=== PATIENT | female | born 1965 | race Caucasian/White ===

== ENCOUNTER 2022-12-14 17:09 | Observation (INO) | payer OTHER ==
[2022-12-14] MEDS ORDERED: FAMOTIDINE 20 MG/50 ML IVPB 20 MG/50 ML MG IVPB ONE ×2 (19:48→20:02)
[2022-12-14] MEDS ORDERED: MAG HYDROX/AL HYDROX/SIMETH 30 ML UNIT-DOSE CUP PO ONE (19:48)
[2022-12-14] MEDS ORDERED: ONDANSETRON 4 MG/2 ML VIAL IVPUSH ONE (19:48)
[2022-12-14] MEDS ORDERED: ONDANSETRON 4 MG/2 ML VIAL ONE (20:02)
[2022-12-14] MEDS ORDERED: MAG HYDROX/AL HYDROX/SIMETH 30 ML UNIT-DOSE CUP ONE (20:02)
[2022-12-14 20:07] LABS: BASO % 0.5 % (0-2.0); HEMATOCRIT 39.5 % (32.4-45.2); HEMOGLOBIN 13.1 GM/dL (10.7-15.3); LYMPH % 27.4 % (8-40); MCH 27.7 pg (25.7-33.7); MEAN CELL VOLUME 83.9 fl (80-96); MEAN PLT VOLUME 8.6 fl (7.5-11.1); MONO % 7.2 % (3.8-10.2); NEUT % 61.9 % (42.8-82.8); PLATELET COUNT 288 10^3/uL (134-434); RBC 4.71 M/mm3 (3.60-5.2); RDW 14.4 % (11.6-15.6)
[2022-12-14 20:24] LABS: POTASSIUM 4.7 mmol/L (3.5-5.1)
[2022-12-14 20:27] LABS: BLOOD UREA NITROGEN 29.8 mg/dL (7-18); CALCIUM 9.9 mg/dL (8.5-10.1)
[2022-12-14 20:29] LABS: CREATININE 1.5 mg/dL (0.55-1.3)
[2022-12-14 20:31] LABS: BILIRUBIN,TOTAL 0.6 mg/dL (0.2-1); TOT PROT 7.9 g/dl (6.4-8.2)
[2022-12-14] MEDS ORDERED: SODIUM CHLORIDE 0.9% 500 ML INFUS.BAG IV ONE (20:34)
[2022-12-15] MEDS ORDERED: MAG HYDROX/AL HYDROX/SIMETH 30 ML UNIT-DOSE CUP PO PRN (00:53)
[2022-12-15] MEDS ORDERED: ONDANSETRON 4 MG/2 ML VIAL IVPUSH PRN (02:00)
[2022-12-15 02:25] VITALS: BMI 35.1
[2022-12-15] MEDS ORDERED: TRIMETHOBENZAMIDE HCL 200MG/2ML INJ IM PRN (02:32)
[2022-12-15] MEDS ORDERED: ACETAMINOPHEN 1000 MG/100 ML BAG IVPB PRN (02:47)
[2022-12-15] MEDS: DIVALPROEX NA *ER* EXTEND REL 500 MG TABLET.SA (FP) PO SCH (03:23)
[2022-12-15] MEDS: BENZTROPINE MESYLATE 2 MG TABLET PO SCH ×2 (03:24→23:43)
[2022-12-15] MEDS: SODIUM CHLORIDE 1,000 ML IV SCH ×2 (04:01→17:10)
[2022-12-15] MEDS: PANTOPRAZOLE 40 MG TABLET PO SCH (09:22)
[2022-12-15] MEDS: DIVALPROEX NA *ER* EXTEND REL 250 MG TABLET.SA PO SCH (09:22)
[2022-12-15] MEDS: FLUoxetine HCL 20 MG CAPSULE PO SCH (09:23)
[2022-12-15] MEDS: buPROPion HCL 75 MG TABLET PO SCH (09:23)
[2022-12-15 09:30] LABS: PH,URINE 5.5 (5.0-8.0); URINE APPEARANCE CLEAR; URINE BILIRUBIN NEGATIVE (NEGATIVE); URINE COLOR YELLOW; URINE GLUCOSE (UA) NEGATIVE (NEGATIVE); URINE KETONE NEGATIVE (NEGATIVE)
[2022-12-15 09:31] LABS: EPI CELLS 81.9 /uL (0-25.1); HYALINE CASTS 1.6 /uL (0-3.1); URINE BACTERIA 89.4 /uL (0-1359); URINE LEUK ESTERASE 1+ (NEGATIVE); URINE NITRITE NEGATIVE (NEGATIVE); URINE PROTEIN NEGATIVE (NEGATIVE); URINE RBC 16.6 /uL (0-23.9); URINE UROBILINOGEN 0.2 mg/dL (0.2-1.0); URINE WBC 347.2 /uL (0-25.8)
[2022-12-15] MEDS: CEFTRIAXONE 1 GM in DEXTROSE 5%-WATER - 50 ML IVPB SCH (09:48)
[2022-12-15] MEDS: HEPARIN NA (PORCINE) 5,000 UNITS/ML 1ML VIAL SQ SCH ×2 (09:48→23:29)
[2022-12-15] MEDS: hydrOXYzine HCL 10 MG/5 ML LIQUID BULK BOTTLE PO PRN (11:11)
[2022-12-15] MEDS: LURASIDONE HCL 40 MG TABLET PO SCH (16:59)
[2022-12-15] MEDS ORDERED: BENZTROPINE MESYLATE 1 MG TABLET PO SCH (23:10)
[2022-12-15] MEDS: BENZTROPINE MESYLATE 1 MG TABLET PO SCH (23:28)
[2022-12-15] MEDS: MELATONIN 5 MG TABLETS PO SCH (23:29)
[2022-12-16] MEDS: DIVALPROEX NA *ER* EXTEND REL 500 MG TABLET.SA (FP) PO SCH ×2 (00:01→22:45)
[2022-12-16] MEDS: FLUoxetine HCL 20 MG CAPSULE PO SCH (09:21)
[2022-12-16] MEDS: TAMSULOSIN HCL 0.4 MG CAP PO SCH (09:21)
[2022-12-16] MEDS: PANTOPRAZOLE 40 MG TABLET PO SCH (09:21)
[2022-12-16] MEDS: DIVALPROEX NA *ER* EXTEND REL 250 MG TABLET.SA PO SCH (09:21)
[2022-12-16] MEDS: HEPARIN NA (PORCINE) 5,000 UNITS/ML 1ML VIAL SQ SCH ×2 (09:22→22:46)
[2022-12-16] MEDS: CEFTRIAXONE 1 GM in DEXTROSE 5%-WATER - 50 ML IVPB SCH (09:22)
[2022-12-16] MEDS: SODIUM CHLORIDE 1,000 ML IV SCH ×2 (09:23→22:44)
[2022-12-16] MEDS: buPROPion HCL 75 MG TABLET PO SCH (09:26)
[2022-12-16 09:51] LABS: BASO % 0.2 % (0-2.0); EOS % 3.3 % (0-4.5); HEMATOCRIT 35.5 % (32.4-45.2); HEMOGLOBIN 11.7 GM/dL (10.7-15.3); LYMPH % 24.2 % (8-40); MCH 27.9 pg (25.7-33.7); MCHC 32.9 g/dl (32.0-36.0); MEAN CELL VOLUME 84.7 fl (80-96); MEAN PLT VOLUME 7.7 fl (7.5-11.1); MONO % 3.9 % (3.8-10.2); NEUT % 68.4 % (42.8-82.8); PLATELET COUNT 214 10^3/uL (134-434); RBC 4.19 M/mm3 (3.60-5.2); RDW 14.8 % (11.6-15.6); WHITE BLOOD COUNT 6.2 K/mm3 (4.0-10.0)
[2022-12-16 10:08] LABS: POTASSIUM 4.2 mmol/L (3.5-5.1)
[2022-12-16 10:10] LABS: CALCIUM 8.6 mg/dL (8.5-10.1)
[2022-12-16 10:11] LABS: BLOOD UREA NITROGEN 15.6 mg/dL (7-18)
[2022-12-16 10:14] LABS: CREATININE 0.9 mg/dL (0.55-1.3)
[2022-12-16 10:16] LABS: BILIRUBIN,TOTAL 0.5 mg/dL (0.2-1); TOT PROT 6.3 g/dl (6.4-8.2)
[2022-12-16 10:38] LABS: ALBUMIN 3.1 g/dl (3.4-5.0)
[2022-12-16] MEDS: LURASIDONE HCL 40 MG TABLET PO SCH (16:31)
[2022-12-16] MEDS: BENZTROPINE MESYLATE 1 MG TABLET PO SCH (22:45)
[2022-12-16] MEDS: MELATONIN 5 MG TABLETS PO SCH (22:46)
[2022-12-16] MEDS: hydrOXYzine HCL 10 MG/5 ML LIQUID BULK BOTTLE PO PRN (22:54)
[2022-12-17] MEDS: SODIUM CHLORIDE 1,000 ML IV SCH (06:41)
[2022-12-17] MEDS: TAMSULOSIN HCL 0.4 MG CAP PO SCH (08:41)
[2022-12-17] MEDS: HEPARIN NA (PORCINE) 5,000 UNITS/ML 1ML VIAL SQ SCH (10:13)
[2022-12-17] MEDS: CEFTRIAXONE 1 GM in DEXTROSE 5%-WATER - 50 ML IVPB SCH (10:15)
[2022-12-17] MEDS: FLUoxetine HCL 20 MG CAPSULE PO SCH (10:15)
[2022-12-17] MEDS: PANTOPRAZOLE 40 MG TABLET PO SCH (10:15)
[2022-12-17] MEDS: buPROPion HCL 75 MG TABLET PO SCH (10:16)
[2022-12-17] MEDS: DIVALPROEX NA *ER* EXTEND REL 250 MG TABLET.SA PO SCH (10:16)
[2022-12-17 14:29] VITALS: BP 119/67; PULSE 84; RESP 16; TEMP 97.7
== END 2022-12-17 15:35 | disposition home or self-care (01) ==
LOC: JER 17:09 → JERBED 22:58 → J5S 12-15 00:44
PROVIDERS: ADMIT Internal Medicine; ATTEND Family Medicine
PROC: 3E033NZ Introduction of Analgesics, Hypnotics, Sedatives into Peripheral Vein, Percutaneous Approach (ICD-10-PCS; principal; 2022-12-14)
PROC: 3E03329 Introduction of Other Anti-infective into Peripheral Vein, Percutaneous Approach (ICD-10-PCS; 2022-12-14)
PROC: 3E033GC Introduction of Other Therapeutic Substance into Peripheral Vein, Percutaneous Approach (ICD-10-PCS; 2022-12-14)
PROC: 3E0337Z Introduction of Electrolytic and Water Balance Substance into Peripheral Vein, Percutaneous Approach (ICD-10-PCS; 2022-12-14)
DX: R10.9 Unspecified abdominal pain (principal); F31.5 Bipolar disorder, current episode depressed, severe, with psychotic features; I25.10 Atherosclerotic heart disease of native coronary artery without angina pectoris; E78.5 Hyperlipidemia, unspecified; I11.9 Hypertensive heart disease without heart failure; M85.80 Other specified disorders of bone density and structure, unspecified site; Z29.8 Encounter for other specified prophylactic measures; F41.8 Other specified anxiety disorders; R19.7 Diarrhea, unspecified; M54.9 Dorsalgia, unspecified; Z95.1 Presence of aortocoronary bypass graft; D64.9 Anemia, unspecified; G89.29 Other chronic pain; N20.0 Calculus of kidney
CPT/HCPCS: 36415; 74177-TC; 80048; 80053; 81003; 83690; 85025; 87086; 96361; 96365; 96367; 96375; 99285-25; G0378; J1644; Q9967

== ENCOUNTER 2023-02-18 13:50 | Observation (INO) | payer OTHER ==
[2023-02-18] MEDS ORDERED: ACETAMINOPHEN 500 MG TABLET (FP) PO ONE (14:54)
[2023-02-18 15:22] LABS: BASO % 0.5 % (0-2.0); EOS % 2.7 % (0-4.5); HEMATOCRIT 31.3 % (32.4-45.2); HEMOGLOBIN 10.5 GM/dL (10.7-15.3); LYMPH % 25.2 % (8-40); MCH 28.3 pg (25.7-33.7); MCHC 33.5 g/dl (32.0-36.0); MEAN CELL VOLUME 84.3 fl (80-96); MEAN PLT VOLUME 7.6 fl (7.5-11.1); MONO % 8.2 % (3.8-10.2); NEUT % 63.4 % (42.8-82.8); PLATELET COUNT 232 10^3/uL (134-434); RBC 3.72 M/mm3 (3.60-5.2); RDW 14.8 % (11.6-15.6); WHITE BLOOD COUNT 7.3 K/mm3 (4.0-10.0)
[2023-02-18 15:29] LABS: INR 0.96 (0.83-1.09); PROTHROMBIN TIME (PATIENT) 11.1 SEC (9.7-13.0)
[2023-02-18] MEDS ORDERED: ACETAMINOPHEN 500 MG TABLET (FP) ONE (15:29)
[2023-02-18 15:32] LABS: ACTIVATED PTT 30.1 SECONDS (25.2-36.5)
[2023-02-18 15:41] LABS: POTASSIUM 5.1 mmol/L (3.5-5.1)
[2023-02-18 15:43] LABS: CALCIUM 8.8 mg/dL (8.5-10.1)
[2023-02-18 15:44] LABS: ALBUMIN 3.1 g/dl (3.4-5.0); BLOOD UREA NITROGEN 26.3 mg/dL (7-18); MAGNESIUM 1.9 mg/dL (1.8-2.4)
[2023-02-18 15:47] LABS: CREATININE 1.4 mg/dL (0.55-1.3)
[2023-02-18 15:49] LABS: BILIRUBIN,TOTAL 0.3 mg/dL (0.2-1); TOT PROT 6.4 g/dl (6.4-8.2)
[2023-02-18 15:52] LABS: N-TERMINAL BNP 58.6 pg/ml (5-125)
[2023-02-18] MEDS ORDERED: SODIUM CHLORIDE 0.9% 500 ML INFUS.BAG IV ONE (18:32)
[2023-02-18 20:29] LABS: EPI CELLS 28 /uL (0-25.1); HYALINE CASTS 4 /uL (0-3.1); URINE APPEARANCE CLEAR; URINE BACTERIA 16 /uL (0-1359); URINE BILIRUBIN NEGATIVE (NEGATIVE); URINE COLOR YELLOW; URINE GLUCOSE (UA) NEGATIVE (NEGATIVE); URINE KETONE NEGATIVE (NEGATIVE); URINE LEUK ESTERASE 1+ (NEGATIVE); URINE NITRITE NEGATIVE (NEGATIVE); URINE PROTEIN NEGATIVE (NEGATIVE); URINE RBC 6 /uL (0-23.9); URINE UROBILINOGEN 0.2 mg/dL (0.2-1.0); URINE WBC 44 /uL (0-25.8)
[2023-02-18] MEDS ORDERED: DOCUSATE SODIUM 100 MG CAPSULE (FP) PO PRN (21:30)
[2023-02-18] MEDS ORDERED: ACETAMINOPHEN 1000 MG/100 ML BAG IVPB PRN (21:34)
[2023-02-18] MEDS ORDERED: BACITRACIN 0.9 GM PACKET ONE (21:42)
[2023-02-18] MEDS ORDERED: morphine CARPU-JECT 2 MG/1 ML DISP.SYRIN IVPUSH ONE (22:31)
[2023-02-18] MEDS ORDERED: HYDROmorphone HCl 2 MG/ML VIAL IVPUSH ONE (22:57)
[2023-02-18] MEDS ORDERED: HYDROmorphone HCl 2 MG/ML VIAL ONE (23:06)
[2023-02-19] MEDS ORDERED: MELATONIN 5 MG TABLETS PO PRN (05:49)
[2023-02-19] MEDS ORDERED: ACETAMINOPHEN INJECTION 100 ML IVPB ONE (09:13)
[2023-02-19] MEDS ORDERED: DIVALPROEX NA *ER* EXTEND REL 250 MG TABLET.SA ONE (11:02)
[2023-02-19] MEDS ORDERED: DIVALPROEX SODIUM 250 MG TABLET E.C. ONE (11:13)
[2023-02-19] MEDS: FLUoxetine HCL 20 MG CAPSULE PO SCH (11:23)
[2023-02-19] MEDS: DIVALPROEX SODIUM 250 MG TABLET E.C. PO SCH (11:23)
[2023-02-19] MEDS: buPROPion HCL 75 MG TABLET PO SCH (11:23)
[2023-02-19 13:35] VITALS: BMI 36.1
[2023-02-19 15:01] LABS: BASO % 0.2 % (0-2.0); EOS % 2.2 % (0-4.5); HEMATOCRIT 31.3 % (32.4-45.2); HEMOGLOBIN 10.6 GM/dL (10.7-15.3); LYMPH % 23.6 % (8-40); MCH 28.4 pg (25.7-33.7); MCHC 33.9 g/dl (32.0-36.0); MEAN PLT VOLUME 7.3 fl (7.5-11.1); MONO % 7.9 % (3.8-10.2); NEUT % 66.1 % (42.8-82.8); PLATELET COUNT 235 10^3/uL (134-434); RBC 3.73 M/mm3 (3.60-5.2); WHITE BLOOD COUNT 6.6 K/mm3 (4.0-10.0)
[2023-02-19 15:21] LABS: POTASSIUM 4.3 mmol/L (3.5-5.1)
[2023-02-19 15:23] LABS: CALCIUM 8.4 mg/dL (8.5-10.1)
[2023-02-19 15:24] LABS: BLOOD UREA NITROGEN 26.5 mg/dL (7-18)
[2023-02-19 15:27] LABS: CREATININE 1.3 mg/dL (0.55-1.3)
[2023-02-19] MEDS: COLLAGENASE CLOSTRIDIUM HIST. 30 GRAMS TUBE TP SCH (16:19)
[2023-02-19] MEDS: FUROSEMIDE 40 MG/4 ML INJECTABLE VIAL IVPUSH SCH (16:19)
[2023-02-19] MEDS ORDERED: LURASIDONE HCL 20 MG TABLET PO SCH (17:00)
[2023-02-19] MEDS ORDERED: PRAZOSIN HCL 1 MG CAPSULE PO SCH (22:00)
[2023-02-19] MEDS: HEPARIN NA (PORCINE) 5,000 UNITS/ML 1ML VIAL SQ SCH ×2 (22:00→22:09)
[2023-02-19] MEDS ORDERED: DIVALPROEX NA *ER* EXTEND REL 500 MG TABLET.SA (FP) PO SCH (22:00)
[2023-02-20] MEDS ORDERED: ACETAMINOPHEN 1000 MG/100 ML BAG IVPB PRN (04:47)
[2023-02-20] MEDS: FUROSEMIDE 40 MG/4 ML INJECTABLE VIAL IVPUSH SCH ×2 (05:46→13:48)
[2023-02-20 09:05] LABS: HEMATOCRIT 36.5 % (32.4-45.2); MCH 27.9 pg (25.7-33.7); MCHC 32.8 g/dl (32.0-36.0); MEAN PLT VOLUME 8.4 fl (7.5-11.1); PLATELET COUNT 274 10^3/uL (134-434); RDW 14.6 % (11.6-15.6)
[2023-02-20 09:23] LABS: ALBUMIN 3.6 g/dl (3.4-5.0); BLOOD UREA NITROGEN 30.7 mg/dL (7-18); CALCIUM 9.2 mg/dL (8.5-10.1)
[2023-02-20 09:26] LABS: CREATININE 1.5 mg/dL (0.55-1.3)
[2023-02-20 09:27] LABS: TOT PROT 7.3 g/dl (6.4-8.2)
[2023-02-20 09:28] LABS: BILIRUBIN,TOTAL 0.4 mg/dL (0.2-1)
[2023-02-20] MEDS: buPROPion HCL 75 MG TABLET PO SCH (11:08)
[2023-02-20] MEDS: HEPARIN NA (PORCINE) 5,000 UNITS/ML 1ML VIAL SQ SCH ×2 (11:08→11:15)
[2023-02-20] MEDS: DIVALPROEX SODIUM 250 MG TABLET E.C. PO SCH (11:08)
[2023-02-20] MEDS: COLLAGENASE CLOSTRIDIUM HIST. 30 GRAMS TUBE TP SCH (11:09)
[2023-02-20] MEDS: FLUoxetine HCL 20 MG CAPSULE PO SCH (11:09)
[2023-02-20 12:27] VITALS: RESP 18
[2023-02-20 14:23] VITALS: BP 126/46; PULSE 88; TEMP 97.5
[2023-02-20] MEDS ORDERED: AMINO ACIDS/PROTEIN HYDROLYS 30 ML LIQUID.PKT PO SCH (17:30)
[2023-02-21] MEDS ORDERED: ASCORBIC ACID 500 MG TABLET (FP) PO SCH (10:00)
[2023-02-21] MEDS ORDERED: FUROSEMIDE 40 MG TABLET (FP) PO SCH (10:00)
== END 2023-02-20 16:32 | disposition home or self-care (01) ==
LOC: JER 13:50 → JERBED 18:04 → J7W 02-19 12:21
PROVIDERS: ADMIT Internal Medicine; ATTEND Family Medicine
PROC: 3E033GC Introduction of Other Therapeutic Substance into Peripheral Vein, Percutaneous Approach (ICD-10-PCS; principal; 2023-02-18)
PROC: 3E033NZ Introduction of Analgesics, Hypnotics, Sedatives into Peripheral Vein, Percutaneous Approach (ICD-10-PCS; 2023-02-18)
PROC: 3E0337Z Introduction of Electrolytic and Water Balance Substance into Peripheral Vein, Percutaneous Approach (ICD-10-PCS; 2023-02-18)
DX: I12.9 Hypertensive chronic kidney disease with stage 1 through stage 4 chronic kidney disease, or unspecified chronic kidney disease (principal); R60.0 Localized edema; I25.10 Atherosclerotic heart disease of native coronary artery without angina pectoris; I11.9 Hypertensive heart disease without heart failure; R26.2 Difficulty in walking, not elsewhere classified; F31.9 Bipolar disorder, unspecified; F25.9 Schizoaffective disorder, unspecified; R94.4 Abnormal results of kidney function studies; N17.9 Acute kidney failure, unspecified; D64.9 Anemia, unspecified; N18.9 Chronic kidney disease, unspecified; N20.0 Calculus of kidney
CPT/HCPCS: 36415; 71045-TC-FY; 76775-TC; 80048; 80053; 81003; 82728; 83540; 83550; 83735; 83880; 84100; 84436; 84443; 84484; 85025; 85027; 85610; 85730; 87086; 93005; 93010; 93970-TC; 93971-TC; 96374; 96375; 96376; 97116-GP; 97161-GP; 99285-25; G0378; J1644

== ENCOUNTER 2023-02-27 12:08 | Inpatient (IN) | payer OTHER ==
[2023-02-27 13:40] LABS: PH,URINE 5.5 (5.0-8.0); URINE APPEARANCE CLEAR; URINE BILIRUBIN NEGATIVE (NEGATIVE); URINE COLOR YELLOW; URINE GLUCOSE (UA) NEGATIVE (NEGATIVE); URINE KETONE NEGATIVE (NEGATIVE); URINE LEUK ESTERASE NEGATIVE (NEGATIVE); URINE NITRITE NEGATIVE (NEGATIVE); URINE PROTEIN NEGATIVE (NEGATIVE); URINE UROBILINOGEN 0.2 mg/dL (0.2-1.0)
[2023-02-27 13:54] LABS: BASO % 0.4 % (0-2.0); EOS % 3.8 % (0-4.5); HEMATOCRIT 34.5 % (32.4-45.2); HEMOGLOBIN 11.9 GM/dL (10.7-15.3); LYMPH % 25.1 % (8-40); MCH 28.8 pg (25.7-33.7); MCHC 34.6 g/dl (32.0-36.0); MEAN CELL VOLUME 83.3 fl (80-96); MEAN PLT VOLUME 8.2 fl (7.5-11.1); MONO % 6.5 % (3.8-10.2); NEUT % 64.2 % (42.8-82.8); PLATELET COUNT 323 10^3/uL (134-434); RBC 4.14 M/mm3 (3.60-5.2); RDW 14.5 % (11.6-15.6); WHITE BLOOD COUNT 8.5 K/mm3 (4.0-10.0)
[2023-02-27 14:15] LABS: CALCIUM 8.8 mg/dL (8.5-10.1)
[2023-02-27 14:16] LABS: ALBUMIN 3.6 g/dl (3.4-5.0); BLOOD UREA NITROGEN 51.4 mg/dL (7-18)
[2023-02-27 14:20] LABS: TOT PROT 7.5 g/dl (6.4-8.2)
[2023-02-27 14:21] LABS: BILIRUBIN,TOTAL 0.3 mg/dL (0.2-1)
[2023-02-27] MEDS ORDERED: MELATONIN 5 MG TABLETS PO PRN (16:10)
[2023-02-27] MEDS: LURASIDONE HCL 20 MG TABLET PO SCH (18:57)
[2023-02-27] MEDS ORDERED: DIVALPROEX SODIUM 500 MG TABLET E.C. ONE (22:16)
[2023-02-27] MEDS ORDERED: HEPARIN NA (PORCINE) 5,000 UNITS/ML 1ML VIAL ONE (22:16)
[2023-02-27] MEDS: PRAZOSIN HCL 1 MG CAPSULE PO SCH (22:39)
[2023-02-27] MEDS: DIVALPROEX NA *ER* EXTEND REL 500 MG TABLET.SA (FP) PO SCH (22:39)
[2023-02-27] MEDS: HEPARIN NA (PORCINE) 5,000 UNITS/ML 1ML VIAL SQ SCH (22:39)
[2023-02-27] MEDS ORDERED: ACETAMINOPHEN 500 MG TABLET (FP) PO ONE (23:33)
[2023-02-27] MEDS ORDERED: ACETAMINOPHEN 325 MG TABLET (FP) ONE (23:41)
[2023-02-28 05:53] VITALS: BMI 36.0
[2023-02-28 09:45] LABS: POTASSIUM 3.5 mmol/L (3.5-5.1)
[2023-02-28 09:47] LABS: CALCIUM 8.1 mg/dL (8.5-10.1)
[2023-02-28 09:48] LABS: BLOOD UREA NITROGEN 49.3 mg/dL (7-18)
[2023-02-28 09:51] LABS: CREATININE 2.8 mg/dL (0.55-1.3)
[2023-02-28 09:52] LABS: BILIRUBIN,TOTAL 0.4 mg/dL (0.2-1)
[2023-02-28 09:53] LABS: TOT PROT 6.1 g/dl (6.4-8.2)
[2023-02-28] MEDS: buPROPion HCL 75 MG TABLET PO SCH (10:04)
[2023-02-28] MEDS: FLUoxetine HCL 20 MG CAPSULE PO SCH (10:05)
[2023-02-28] MEDS: HEPARIN NA (PORCINE) 5,000 UNITS/ML 1ML VIAL SQ SCH ×4 (10:05→23:00)
[2023-02-28 11:40] LABS: BASO % 0.4 % (0-2.0); EOS % 4.5 % (0-4.5); HEMATOCRIT 30.6 % (32.4-45.2); HEMOGLOBIN 10.4 GM/dL (10.7-15.3); LYMPH % 23.6 % (8-40); MCH 28.6 pg (25.7-33.7); MCHC 34.2 g/dl (32.0-36.0); MEAN CELL VOLUME 83.7 fl (80-96); MEAN PLT VOLUME 7.9 fl (7.5-11.1); MONO % 6.3 % (3.8-10.2); NEUT % 65.2 % (42.8-82.8); PLATELET COUNT 216 10^3/uL (134-434); RBC 3.65 M/mm3 (3.60-5.2); RDW 14.3 % (11.6-15.6); WHITE BLOOD COUNT 6.1 K/mm3 (4.0-10.0)
[2023-02-28] MEDS: LURASIDONE HCL 20 MG TABLET PO SCH (18:33)
[2023-02-28] MEDS: PRAZOSIN HCL 1 MG CAPSULE PO SCH (23:00)
[2023-02-28] MEDS: DIVALPROEX NA *ER* EXTEND REL 500 MG TABLET.SA (FP) PO SCH (23:00)
[2023-03-01] MEDS: buPROPion HCL 75 MG TABLET PO SCH (09:11)
[2023-03-01] MEDS: HEPARIN NA (PORCINE) 5,000 UNITS/ML 1ML VIAL SQ SCH ×2 (09:11→22:22)
[2023-03-01] MEDS: FLUoxetine HCL 20 MG CAPSULE PO SCH (09:11)
[2023-03-01] MEDS ORDERED: GABAPENTIN 100 MG CAPSULE PO SCH (10:15)
[2023-03-01 10:24] LABS: POTASSIUM 3.8 mmol/L (3.5-5.1)
[2023-03-01 10:31] LABS: CALCIUM 8.3 mg/dL (8.5-10.1)
[2023-03-01 10:32] LABS: ALBUMIN 2.9 g/dl (3.4-5.0); BLOOD UREA NITROGEN 44.1 mg/dL (7-18)
[2023-03-01 10:35] LABS: CREATININE 1.7 mg/dL (0.55-1.3)
[2023-03-01 10:36] LABS: BILIRUBIN,TOTAL 0.5 mg/dL (0.2-1); TOT PROT 6.2 g/dl (6.4-8.2)
[2023-03-01] MEDS: LURASIDONE HCL 20 MG TABLET PO SCH (17:06)
[2023-03-01] MEDS: DIVALPROEX NA *ER* EXTEND REL 500 MG TABLET.SA (FP) PO SCH (22:22)
[2023-03-01] MEDS: PRAZOSIN HCL 1 MG CAPSULE PO SCH (22:30)
[2023-03-02 05:51] VITALS: RESP 18
[2023-03-02] MEDS: buPROPion HCL 75 MG TABLET PO SCH (10:34)
[2023-03-02] MEDS: FLUoxetine HCL 20 MG CAPSULE PO SCH (10:34)
[2023-03-02] MEDS: HEPARIN NA (PORCINE) 5,000 UNITS/ML 1ML VIAL SQ SCH (10:38)
[2023-03-02 14:32] VITALS: BP 121/61; PULSE 80; TEMP 98.4
== END 2023-03-02 15:20 | disposition home health service (06) | DRG 684 ==
LOC: JER 12:08 → JERBED 15:10 → J6S 02-28 05:06
PROVIDERS: ADMIT Family Medicine; ATTEND Family Medicine
DX: N17.9 Acute kidney failure, unspecified (principal); I12.9 Hypertensive chronic kidney disease with stage 1 through stage 4 chronic kidney disease, or unspecified chronic kidney disease; F25.0 Schizoaffective disorder, bipolar type; I25.10 Atherosclerotic heart disease of native coronary artery without angina pectoris; N18.9 Chronic kidney disease, unspecified; D64.9 Anemia, unspecified; E78.5 Hyperlipidemia, unspecified; E66.9 Obesity, unspecified; Z68.36 Body mass index [BMI] 36.0-36.9, adult; Z95.5 Presence of coronary angioplasty implant and graft
CPT/HCPCS: 36415; 71045-TC-FY; 73030-TC-LT-FY; 76775-TC; 80053; 81003; 83735; 83880; 84443; 84484; 85025; 93005; 93010; 97116-GP; 97162-GP; 99285-25; J1644

== ENCOUNTER 2023-03-29 15:43 | Inpatient (IN) | payer OTHER ==
[2023-03-29 17:29] LABS: BASO % 0.3 % (0-2.0); HEMATOCRIT 32.5 % (32.4-45.2); HEMOGLOBIN 11.3 GM/dL (10.7-15.3); LYMPH % 21.5 % (8-40); MCH 29.7 pg (25.7-33.7); MCHC 34.8 g/dl (32.0-36.0); MEAN CELL VOLUME 85.4 fl (80-96); MEAN PLT VOLUME 7.7 fl (7.5-11.1); NEUT % 68.2 % (42.8-82.8); PLATELET COUNT 260 10^3/uL (134-434); RDW 14.6 % (11.6-15.6); WHITE BLOOD COUNT 9.2 K/mm3 (4.0-10.0)
[2023-03-29 18:06] LABS: POTASSIUM 4.4 mmol/L (3.5-5.1)
[2023-03-29 18:07] LABS: ALBUMIN 3.5 g/dl (3.4-5.0); BLOOD UREA NITROGEN 41.8 mg/dL (7-18); CALCIUM 8.6 mg/dL (8.5-10.1); MAGNESIUM 2.1 mg/dL (1.8-2.4)
[2023-03-29 18:11] LABS: CREATININE 1.7 mg/dL (0.55-1.3)
[2023-03-29 18:13] LABS: BILIRUBIN,TOTAL 0.3 mg/dL (0.2-1)
[2023-03-29 18:15] LABS: N-TERMINAL BNP 174.7 pg/ml (5-125)
[2023-03-29] MEDS ORDERED: FUROSEMIDE 40 MG TABLET (FP) PO SCH (22:15)
[2023-03-29] MEDS ORDERED: FUROSEMIDE 40 MG TABLET (FP) ONE (22:56)
[2023-03-30 06:37] LABS: BASO % 0.5 % (0-2.0); EOS % 3.8 % (0-4.5); HEMATOCRIT 31.5 % (32.4-45.2); HEMOGLOBIN 10.6 GM/dL (10.7-15.3); LYMPH % 23.2 % (8-40); MCHC 33.7 g/dl (32.0-36.0); MEAN PLT VOLUME 7.6 fl (7.5-11.1); MONO % 8.6 % (3.8-10.2); NEUT % 63.9 % (42.8-82.8); PLATELET COUNT 247 10^3/uL (134-434); RBC 3.66 M/mm3 (3.60-5.2); RDW 14.8 % (11.6-15.6); WHITE BLOOD COUNT 8.6 K/mm3 (4.0-10.0)
[2023-03-30 06:55] LABS: BLOOD UREA NITROGEN 36.7 mg/dL (7-18)
[2023-03-30 06:57] LABS: CREATININE 1.6 mg/dL (0.55-1.3)
[2023-03-30] MEDS ORDERED: FUROSEMIDE 40 MG TABLET (FP) ONE ×2 (07:13→14:03)
[2023-03-30] MEDS: FUROSEMIDE 40 MG TABLET (FP) PO SCH ×2 (07:19→14:07)
[2023-03-30] MEDS ORDERED: GABAPENTIN 100 MG CAPSULE ONE (09:29)
[2023-03-30] MEDS ORDERED: ENOXAPARIN NA (PORCINE) 40 MG/0.4 ML DISP.SYRIN SQ ONE (09:29)
[2023-03-30] MEDS: FLUoxetine HCL 20 MG CAPSULE PO SCH (09:39)
[2023-03-30] MEDS: GABAPENTIN 100 MG CAPSULE PO SCH (09:39)
[2023-03-30] MEDS: buPROPion HCL 75 MG TABLET PO SCH (09:39)
[2023-03-30] MEDS: ENOXAPARIN NA (PORCINE) 40 MG/0.4 ML DISP.SYRIN SQ SCH (09:40)
[2023-03-30] MEDS ORDERED: ASPIRIN 81 MG CHEWABLE TABLETS ONE (10:17)
[2023-03-30] MEDS: ASPIRIN COATED 81 MG TABLET.EC PO SCH (10:25)
[2023-03-30 15:22] VITALS: BMI 36.6
[2023-03-30] MEDS ORDERED: LURASIDONE HCL 20 MG TABLET PO SCH (17:00)
[2023-03-30] MEDS ORDERED: ACETAMINOPHEN 1000 MG/100 ML BAG IVPB ONE (23:08)
[2023-03-30] MEDS: LURASIDONE HCL 20 MG TABLET PO SCH (23:16)
[2023-03-30] MEDS: ATORVASTATIN CA 40 MG TABLET (FP) PO SCH (23:16)
[2023-03-30] MEDS: PRAZOSIN HCL 1 MG CAPSULE PO SCH (23:59)
[2023-03-31] MEDS: FUROSEMIDE 40 MG TABLET (FP) PO SCH ×2 (05:11→14:38)
[2023-03-31 08:12] LABS: POTASSIUM 4.2 mmol/L (3.5-5.1)
[2023-03-31 08:17] LABS: ALBUMIN 3.2 g/dl (3.4-5.0); BLOOD UREA NITROGEN 37.3 mg/dL (7-18); CALCIUM 8.3 mg/dL (8.5-10.1)
[2023-03-31 08:19] LABS: CREATININE 1.6 mg/dL (0.55-1.3)
[2023-03-31 08:21] LABS: TOT PROT 6.6 g/dl (6.4-8.2)
[2023-03-31 08:22] LABS: BILIRUBIN,TOTAL 0.5 mg/dL (0.2-1)
[2023-03-31] MEDS: ENOXAPARIN NA (PORCINE) 40 MG/0.4 ML DISP.SYRIN SQ SCH (10:07)
[2023-03-31] MEDS: GABAPENTIN 100 MG CAPSULE PO SCH (10:08)
[2023-03-31] MEDS: buPROPion HCL 75 MG TABLET PO SCH (10:09)
[2023-03-31] MEDS: ASPIRIN COATED 81 MG TABLET.EC PO SCH (10:09)
[2023-03-31] MEDS: FLUoxetine HCL 20 MG CAPSULE PO SCH (10:09)
[2023-03-31] MEDS: ACETAMINOPHEN 325 MG TABLET (FP) PO PRN ×2 (11:00→23:00)
[2023-03-31 13:27] LABS: EPI CELLS 10 /uL (0-25.1); HYALINE CASTS 0 /uL (0-3.1); URINE APPEARANCE CLEAR; URINE BACTERIA 46 /uL (0-1359); URINE BILIRUBIN NEGATIVE (NEGATIVE); URINE COLOR YELLOW; URINE GLUCOSE (UA) NEGATIVE (NEGATIVE); URINE KETONE NEGATIVE (NEGATIVE); URINE LEUK ESTERASE TRACE (NEGATIVE); URINE NITRITE NEGATIVE (NEGATIVE); URINE PROTEIN NEGATIVE (NEGATIVE); URINE RBC 8 /uL (0-23.9); URINE UROBILINOGEN 0.2 mg/dL (0.2-1.0); URINE WBC 13 /uL (0-25.8)
[2023-03-31] MEDS: DIVALPROEX SODIUM 250 MG TABLET E.C. PO SCH (14:38)
[2023-03-31] MEDS: LURASIDONE HCL 20 MG TABLET PO SCH (16:31)
[2023-03-31] MEDS: DIVALPROEX NA *ER* EXTEND REL 500 MG TABLET.SA (FP) PO SCH (21:45)
[2023-03-31] MEDS: ATORVASTATIN CA 40 MG TABLET (FP) PO SCH (21:46)
[2023-03-31] MEDS: PRAZOSIN HCL 1 MG CAPSULE PO SCH (21:47)
[2023-04-01] MEDS: FUROSEMIDE 40 MG TABLET (FP) PO SCH ×2 (05:57→14:29)
[2023-04-01] MEDS: ASPIRIN COATED 81 MG TABLET.EC PO SCH (10:15)
[2023-04-01] MEDS: DIVALPROEX SODIUM 250 MG TABLET E.C. PO SCH (10:16)
[2023-04-01] MEDS: FLUoxetine HCL 20 MG CAPSULE PO SCH (10:16)
[2023-04-01] MEDS: ENOXAPARIN NA (PORCINE) 40 MG/0.4 ML DISP.SYRIN SQ SCH (10:16)
[2023-04-01] MEDS: GABAPENTIN 100 MG CAPSULE PO SCH (10:16)
[2023-04-01] MEDS: buPROPion HCL 75 MG TABLET PO SCH (10:19)
[2023-04-01] MEDS: LURASIDONE HCL 20 MG TABLET PO SCH (19:12)
[2023-04-01] MEDS: DIVALPROEX NA *ER* EXTEND REL 500 MG TABLET.SA (FP) PO SCH (21:23)
[2023-04-01] MEDS: PRAZOSIN HCL 1 MG CAPSULE PO SCH (21:23)
[2023-04-01] MEDS: ATORVASTATIN CA 40 MG TABLET (FP) PO SCH (21:24)
[2023-04-02] MEDS: FUROSEMIDE 40 MG TABLET (FP) PO SCH ×2 (06:08→14:49)
[2023-04-02 07:49] LABS: BASO % 0.3 % (0-2.0); EOS % 4.4 % (0-4.5); HEMATOCRIT 34.1 % (32.4-45.2); LYMPH % 22.1 % (8-40); MCH 29.7 pg (25.7-33.7); MCHC 35.3 g/dl (32.0-36.0); MEAN CELL VOLUME 84.2 fl (80-96); MONO % 6.8 % (3.8-10.2); NEUT % 66.4 % (42.8-82.8); PLATELET COUNT 280 10^3/uL (134-434); RBC 4.05 M/mm3 (3.60-5.2); RDW 14.9 % (11.6-15.6); WHITE BLOOD COUNT 9.8 K/mm3 (4.0-10.0)
[2023-04-02 08:02] LABS: POTASSIUM 3.9 mmol/L (3.5-5.1)
[2023-04-02 08:04] LABS: CALCIUM 8.4 mg/dL (8.5-10.1); POTASSIUM 3.9 mmol/L (3.5-5.1)
[2023-04-02 08:05] LABS: BLOOD UREA NITROGEN 41.9 mg/dL (7-18); MAGNESIUM 1.9 mg/dL (1.8-2.4)
[2023-04-02 08:08] LABS: CALCIUM 8.4 mg/dL (8.5-10.1); CREATININE 1.6 mg/dL (0.55-1.3)
[2023-04-02 08:09] LABS: ALBUMIN 3.5 g/dl (3.4-5.0); BLOOD UREA NITROGEN 38.6 mg/dL (7-18)
[2023-04-02 08:12] LABS: CREATININE 1.6 mg/dL (0.55-1.3)
[2023-04-02 08:13] LABS: BILIRUBIN,TOTAL 0.4 mg/dL (0.2-1); TOT PROT 7.2 g/dl (6.4-8.2)
[2023-04-02 08:14] LABS: N-TERMINAL BNP 29.1 pg/ml (5-125)
[2023-04-02] MEDS: ENOXAPARIN NA (PORCINE) 40 MG/0.4 ML DISP.SYRIN SQ SCH (10:14)
[2023-04-02] MEDS: FLUoxetine HCL 20 MG CAPSULE PO SCH (10:15)
[2023-04-02] MEDS: GABAPENTIN 100 MG CAPSULE PO SCH (10:15)
[2023-04-02] MEDS: DIVALPROEX SODIUM 250 MG TABLET E.C. PO SCH (10:15)
[2023-04-02] MEDS: ASPIRIN COATED 81 MG TABLET.EC PO SCH (10:16)
[2023-04-02] MEDS: buPROPion HCL 75 MG TABLET PO SCH (10:17)
[2023-04-02] MEDS: LURASIDONE HCL 20 MG TABLET PO SCH (16:53)
[2023-04-02] MEDS: ATORVASTATIN CA 40 MG TABLET (FP) PO SCH (21:08)
[2023-04-02] MEDS: DIVALPROEX NA *ER* EXTEND REL 500 MG TABLET.SA (FP) PO SCH (21:08)
[2023-04-02] MEDS: PRAZOSIN HCL 1 MG CAPSULE PO SCH (21:08)
[2023-04-03] MEDS: ACETAMINOPHEN 325 MG TABLET (FP) PO PRN (04:16)
[2023-04-03] MEDS: FUROSEMIDE 40 MG TABLET (FP) PO SCH ×2 (06:28→14:06)
[2023-04-03] MEDS ORDERED: LEVOTHYROXINE NA 25 MCG TABLET (FP) PO SCH (07:00)
[2023-04-03 10:34] VITALS: RESP 18
[2023-04-03] MEDS: ENOXAPARIN NA (PORCINE) 40 MG/0.4 ML DISP.SYRIN SQ SCH ×2 (10:34→10:40)
[2023-04-03] MEDS: ASPIRIN COATED 81 MG TABLET.EC PO SCH (10:35)
[2023-04-03] MEDS: GABAPENTIN 100 MG CAPSULE PO SCH (10:35)
[2023-04-03] MEDS: FLUoxetine HCL 20 MG CAPSULE PO SCH (10:35)
[2023-04-03] MEDS: DIVALPROEX SODIUM 250 MG TABLET E.C. PO SCH (10:35)
[2023-04-03] MEDS: buPROPion HCL 75 MG TABLET PO SCH (10:38)
[2023-04-03 14:10] VITALS: BP 121/69; PULSE 83; TEMP 98
== END 2023-04-03 14:37 | disposition home or self-care (01) | DRG 291 ==
LOC: JER 15:43 → JERBED 22:53 → J4W 03-30 14:39
PROVIDERS: ADMIT Student in an Organized Health Care Education/Training Program; ATTEND Family Medicine
DX: I13.0 Hypertensive heart and chronic kidney disease with heart failure and stage 1 through stage 4 chronic kidney disease, or unspecified chronic kidney disease (principal); I50.33 Acute on chronic diastolic (congestive) heart failure; N17.9 Acute kidney failure, unspecified; F31.9 Bipolar disorder, unspecified; I25.5 Ischemic cardiomyopathy; I25.10 Atherosclerotic heart disease of native coronary artery without angina pectoris; E78.5 Hyperlipidemia, unspecified; N18.9 Chronic kidney disease, unspecified; F25.8 Other schizoaffective disorders; F41.8 Other specified anxiety disorders; N20.0 Calculus of kidney; D64.9 Anemia, unspecified; M54.50 Low back pain, unspecified; E66.9 Obesity, unspecified; Z68.35 Body mass index [BMI] 35.0-35.9, adult; Z95.5 Presence of coronary angioplasty implant and graft
CPT/HCPCS: 0241U-QW; 36415; 71046-TC-FY; 74176-TC; 76775-TC; 80048; 80053; 80061; 81003; 82728; 83036; 83540; 83550; 83735; 83880; 84439; 84443; 84484; 85025; 93005; 93010; 99285-25

== ENCOUNTER 2023-06-09 12:46 | Emergency (ER) | payer OTHER ==
[2023-06-09 12:51] VITALS: BP 141/56; PULSE 79; RESP 18; TEMP 98.2; BMI 34.2
[2023-06-09] MEDS ORDERED: ACETAMINOPHEN 500 MG TABLET (FP) PO ONE (13:04)
[2023-06-09] MEDS ORDERED: ACETAMINOPHEN 500 MG TABLET (FP) ONE (14:07)
[2023-06-09] MEDS ORDERED: IBUPROFEN 600 MG TABLET (FP) PO ONE ×2 (14:50→14:52)
== END 2023-06-09 15:39 | disposition home or self-care (01) ==
LOC: JERFT 12:46
DX: M25.562 Pain in left knee (principal); M17.12 Unilateral primary osteoarthritis, left knee
CPT/HCPCS: 73562-TC-LT-FY; 99283-25

== ENCOUNTER 2023-06-22 10:20 | Emergency (ER) | payer OTHER ==
[2023-06-22 10:26] VITALS: BP 126/72; PULSE 86; RESP 17; TEMP 97.9; BMI 34.2
== END 2023-06-22 13:34 | disposition home or self-care (01) ==
LOC: JERFT 10:20
DX: M25.522 Pain in left elbow (principal)
CPT/HCPCS: 73070-TC-LT-FY; 99283-25

== ENCOUNTER 2023-07-31 15:02 | Emergency (ER) | payer OTHER ==
[2023-07-31 15:12] VITALS: BP 143/92; PULSE 93; RESP 18; TEMP 97.5; BMI 33.4
[2023-07-31] MEDS ORDERED: ACETAMINOPHEN 325 MG TABLET (FP) ONE (16:23)
[2023-07-31] MEDS: ACETAMINOPHEN 325 MG TABLET (FP) PO ONE (16:25)
[2023-07-31] MEDS ORDERED: oxyCODONE HCL 5 MG TABLET ONE (17:15)
[2023-07-31] MEDS: oxyCODONE HCL 5 MG TABLET PO ONE (17:19)
== END 2023-07-31 18:12 | disposition home or self-care (01) ==
LOC: JER 15:02
DX: M25.561 Pain in right knee (principal); M25.562 Pain in left knee; M17.0 Bilateral primary osteoarthritis of knee; W19.XXXA Unspecified fall, initial encounter; Y92.009 Unspecified place in unspecified non-institutional (private) residence as the place of occurrence of the external cause
CPT/HCPCS: 73562-TC-LT-FY; 73562-TC-RT-FY; 99284-25

== ENCOUNTER 2023-08-25 19:59 | Observation (INO) | payer OTHER ==
[2023-08-25] MEDS: ACETAMINOPHEN 1000 MG/100 ML BAG IVPB ONE (21:46)
[2023-08-25] MEDS ORDERED: KETOROLAC TROMETHAMINE 15 MG/ML VIAL ONE (21:51)
[2023-08-25] MEDS ORDERED: MAG HYDROX/AL HYDROX/SIMETH 30 ML UNIT-DOSE CUP ONE (21:51)
[2023-08-25 22:05] LABS: BASO % 0.2 % (0-2.0); EOS % 3.4 % (0-4.5); HEMOGLOBIN 12.1 GM/dL (10.7-15.3); LYMPH % 21.7 % (8-40); MCH 28.6 pg (25.7-33.7); MCHC 34.6 g/dl (32.0-36.0); MEAN CELL VOLUME 82.9 fl (80-96); MEAN PLT VOLUME 7.6 fl (7.5-11.1); MONO % 8.8 % (3.8-10.2); NEUT % 65.9 % (42.8-82.8); PLATELET COUNT 231 10^3/uL (134-434); RBC 4.22 M/mm3 (3.60-5.2); RDW 14.4 % (11.6-15.6); WHITE BLOOD COUNT 7.1 K/mm3 (4.0-10.0)
[2023-08-25] MEDS: FAMOTIDINE 20 MG/50 ML IVPB 20 MG/50 ML MG IVPB ONE (22:06)
[2023-08-25] MEDS: MAG HYDROX/AL HYDROX/SIMETH 30 ML UNIT-DOSE CUP PO ONE (22:06)
[2023-08-25] MEDS: KETOROLAC TROMETHAMINE 15 MG/ML VIAL IVPUSH ONE (22:06)
[2023-08-25 22:44] LABS: CHLORIDE 100 mmol/L (98-107); POTASSIUM 3.4 mmol/L (3.5-5.1); SODIUM 140 mmol/L (136-145)
[2023-08-25 22:46] LABS: ALBUMIN 3.5 g/dl (3.4-5.0); CALCIUM 8.8 mg/dL (8.5-10.1)
[2023-08-25 22:47] LABS: ANION GAP 12 mmol/L (4-13); BLOOD UREA NITROGEN 39.1 mg/dL (7-18); CO2 28 mmol/L (21-32); GLUCOSE,RANDOM 97 mg/dL (74-106); MAGNESIUM 2.2 mg/dL (1.8-2.4)
[2023-08-25 22:49] LABS: CREATININE 2.2 mg/dL (0.55-1.3); SGOT/AST 37 U/L (15-37)
[2023-08-25 22:50] LABS: SGPT/ALT 72 U/L (13-61)
[2023-08-25 22:51] LABS: BILIRUBIN,TOTAL 0.3 mg/dL (0.2-1); TOT PROT 7.2 g/dl (6.4-8.2)
[2023-08-25 22:52] LABS: ALK PHOS 73 U/L (45-117)
[2023-08-26] MEDS: SODIUM CHLORIDE 0.9% 500 ML INFUS.BAG IV ONE (03:53)
[2023-08-26] MEDS: OSELTAMIVIR PHOSPHATE 75 MG CAPSULE PO ONE (07:02)
[2023-08-26] MEDS: POTASSIUM CHLORIDE ORAL LIQUID 20 MEQ/15 ML PO ONE (07:03)
[2023-08-26 07:32] LABS: BASO % 0.4 % (0-2.0); EOS % 4.1 % (0-4.5); HEMATOCRIT 33.6 % (32.4-45.2); HEMOGLOBIN 11.3 GM/dL (10.7-15.3); LYMPH % 21.4 % (8-40); MCHC 33.7 g/dl (32.0-36.0); MEAN PLT VOLUME 7.8 fl (7.5-11.1); MONO % 10.5 % (3.8-10.2); NEUT % 63.6 % (42.8-82.8); PLATELET COUNT 213 10^3/uL (134-434); RBC 4.05 M/mm3 (3.60-5.2); RDW 14.3 % (11.6-15.6); WHITE BLOOD COUNT 6.2 K/mm3 (4.0-10.0)
[2023-08-26 08:00] LABS: POTASSIUM 3.3 mmol/L (3.5-5.1)
[2023-08-26 08:08] LABS: CALCIUM 8.6 mg/dL (8.5-10.1)
[2023-08-26 08:09] LABS: BLOOD UREA NITROGEN 36.7 mg/dL (7-18)
[2023-08-26 08:12] LABS: CREATININE 2.1 mg/dL (0.55-1.3)
[2023-08-26] MEDS ORDERED: ASPIRIN COATED 81 MG TABLET.EC ONE (09:30)
[2023-08-26] MEDS ORDERED: LEVOTHYROXINE NA 25 MCG TABLET (FP) ONE (09:30)
[2023-08-26] MEDS ORDERED: GABAPENTIN 100 MG CAPSULE ONE (09:31)
[2023-08-26] MEDS ORDERED: TAMSULOSIN HCL 0.4 MG CAP ONE ×2 (09:31→21:43)
[2023-08-26] MEDS ORDERED: DIVALPROEX SODIUM 250 MG TABLET E.C. ONE (09:31)
[2023-08-26] MEDS: buPROPion HCL 75 MG TABLET PO SCH (09:41)
[2023-08-26] MEDS: GABAPENTIN 100 MG CAPSULE PO SCH (09:41)
[2023-08-26] MEDS: LEVOTHYROXINE NA 25 MCG TABLET (FP) PO SCH (09:41)
[2023-08-26] MEDS: DIVALPROEX SODIUM 250 MG TABLET E.C. PO SCH (09:41)
[2023-08-26] MEDS: TAMSULOSIN HCL 0.4 MG CAP PO SCH (09:41)
[2023-08-26] MEDS: ASPIRIN COATED 81 MG TABLET.EC PO SCH (09:41)
[2023-08-26] MEDS ORDERED: FLUoxetine HCL 20 MG CAPSULE PO SCH (11:41)
[2023-08-26] MEDS ORDERED: OSELTAMIVIR PHOSPHATE 30 MG CAPSULE ONE (18:38)
[2023-08-26] MEDS: OSELTAMIVIR PHOSPHATE 30 MG CAPSULE PO SCH (18:43)
[2023-08-26] MEDS: LURASIDONE HCL 20 MG TABLET PO SCH (18:43)
[2023-08-26] MEDS: FLUoxetine HCL 20 MG CAPSULE PO SCH (18:43)
[2023-08-26] MEDS ORDERED: ATORVASTATIN CA 40 MG TABLET (FP) ONE (21:42)
[2023-08-26] MEDS ORDERED: DIVALPROEX NA *ER* EXTEND REL 250 MG TABLET.SA ONE (21:43)
[2023-08-26] MEDS: DIVALPROEX NA *ER* EXTEND REL 500 MG TABLET.SA (FP) PO SCH (21:58)
[2023-08-26] MEDS: PRAZOSIN HCL 1 MG CAPSULE PO SCH (21:58)
[2023-08-26] MEDS: ATORVASTATIN CA 40 MG TABLET (FP) PO SCH (21:58)
[2023-08-26] MEDS ORDERED: ACETAMINOPHEN 325 MG TABLET (FP) ONE (22:30)
[2023-08-26] MEDS: ACETAMINOPHEN 325 MG TABLET (FP) PO ONE (22:38)
[2023-08-27] MEDS ORDERED: TAMSULOSIN HCL 0.4 MG CAP ONE (07:24)
[2023-08-27] MEDS ORDERED: LEVOTHYROXINE NA 25 MCG TABLET (FP) ONE (07:24)
[2023-08-27] MEDS ORDERED: ASPIRIN COATED 81 MG TABLET.EC ONE (09:10)
[2023-08-27] MEDS ORDERED: DIVALPROEX NA *ER* EXTEND REL 250 MG TABLET.SA ONE (09:11)
[2023-08-27] MEDS ORDERED: GABAPENTIN 100 MG CAPSULE ONE (09:11)
[2023-08-27] MEDS ORDERED: OSELTAMIVIR PHOSPHATE 30 MG CAPSULE ONE (09:11)
[2023-08-27] MEDS ORDERED: POTASSIUM CHLORIDE TABS 20 MEQ TABLET.ER (FP) PO ONE (09:11)
[2023-08-27] MEDS: POTASSIUM CHLORIDE TABS 20 MEQ TABLET.ER (FP) PO ONE (09:30)
[2023-08-27 13:46] LABS: CALCIUM 8.9 mg/dL (8.5-10.1)
[2023-08-27 13:47] LABS: BLOOD UREA NITROGEN 29.4 mg/dL (7-18)
[2023-08-27 13:50] LABS: CREATININE 1.8 mg/dL (0.55-1.3)
[2023-08-27 18:24] VITALS: RESP 18
[2023-08-28 01:29] LABS: URINE APPEARANCE CLEAR; URINE BILIRUBIN NEGATIVE (NEGATIVE); URINE COLOR YELLOW; URINE GLUCOSE (UA) NEGATIVE (NEGATIVE); URINE KETONE NEGATIVE (NEGATIVE); URINE LEUK ESTERASE NEGATIVE (NEGATIVE); URINE NITRITE NEGATIVE (NEGATIVE); URINE PROTEIN NEGATIVE (NEGATIVE); URINE UROBILINOGEN 0.2 mg/dL (0.2-1.0)
[2023-08-28 01:54] LABS: COCAINE, UR NEGATIVE (NEGATIVE); METHADONE, UR NEGATIVE (NEGATIVE); OPIATES, URI NEGATIVE (NEGATIVE); PHENCYCLIDINE,URINE NEGATIVE (NEGATIVE); URINE AMPHETAMINES NEGATIVE (NEGATIVE); URINE BARBITURATES NEGATIVE (NEGATIVE); URINE BENZODIAZEPINES NEGATIVE (NEGATIVE)
[2023-08-28 07:51] LABS: BASO % 0.2 % (0-2.0); EOS % 5.6 % (0-4.5); HEMATOCRIT 31.7 % (32.4-45.2); HEMOGLOBIN 10.8 GM/dL (10.7-15.3); LYMPH % 37.2 % (8-40); MCH 28.4 pg (25.7-33.7); MEAN CELL VOLUME 83.5 fl (80-96); MEAN PLT VOLUME 7.6 fl (7.5-11.1); MONO % 9.1 % (3.8-10.2); NEUT % 47.9 % (42.8-82.8); PLATELET COUNT 193 10^3/uL (134-434); RDW 13.9 % (11.6-15.6); WHITE BLOOD COUNT 4.2 K/mm3 (4.0-10.0)
[2023-08-28 08:12] LABS: ACTIVATED PTT 29.6 SECONDS (25.2-36.5); INR 0.99 (0.83-1.09); POTASSIUM 3.8 mmol/L (3.5-5.1); PROTHROMBIN TIME (PATIENT) 11.5 SEC (9.7-13.0)
[2023-08-28 08:13] LABS: CALCIUM 8.6 mg/dL (8.5-10.1)
[2023-08-28 08:14] LABS: BLOOD UREA NITROGEN 26.4 mg/dL (7-18)
[2023-08-28 08:17] LABS: CREATININE 1.4 mg/dL (0.55-1.3)
[2023-08-28 08:25] LABS: N-TERMINAL BNP 65.6 pg/ml (5-125)
[2023-08-28] MEDS: FLUoxetine HCL 20 MG CAPSULE PO SCH (09:15)
[2023-08-28 14:42] VITALS: BMI 35.6
[2023-08-28] MEDS: LURASIDONE HCL 40 MG TABLET PO SCH (16:22)
[2023-08-28 19:20] VITALS: BP 117/54; PULSE 87; TEMP 98.4
== END 2023-08-28 19:00 | disposition home or self-care (01) ==
LOC: JER 19:59 → JERBED 08-26 03:57 → J7W 08-27 18:09
PROVIDERS: ADMIT Family Medicine; ATTEND Family Medicine
PROC: 3E033GC Introduction of Other Therapeutic Substance into Peripheral Vein, Percutaneous Approach (ICD-10-PCS; principal; 2023-08-26)
PROC: 3E0333Z Introduction of Anti-inflammatory into Peripheral Vein, Percutaneous Approach (ICD-10-PCS; 2023-08-26)
PROC: 3E0337Z Introduction of Electrolytic and Water Balance Substance into Peripheral Vein, Percutaneous Approach (ICD-10-PCS; 2023-08-26)
DX: J10.1 Influenza due to other identified influenza virus with other respiratory manifestations (principal); I25.10 Atherosclerotic heart disease of native coronary artery without angina pectoris; I11.0 Hypertensive heart disease with heart failure; I50.9 Heart failure, unspecified; E78.5 Hyperlipidemia, unspecified; E66.8 Other obesity; Z68.35 Body mass index [BMI] 35.0-35.9, adult; D64.9 Anemia, unspecified; F31.9 Bipolar disorder, unspecified; G89.29 Other chronic pain; M54.50 Low back pain, unspecified; Z90.79 Acquired absence of other genital organ(s); N18.9 Chronic kidney disease, unspecified; N20.0 Calculus of kidney
CPT/HCPCS: 0241U-QW; 36415; 71045-TC-FY; 74176-TC; 76705-TC; 80048; 80053; 80061; 80307; 81003; 83036; 83605; 83690; 83735; 83880; 84443; 84484; 85025; 85610; 85730; 86140; 93005; 93010; 93970-TC; 96365; 96375; 99285-25; G0378

== ENCOUNTER 2023-08-31 11:54 | Emergency (ER) | payer OTHER ==
[2023-08-31 12:10] VITALS: BP 113/85; PULSE 95; RESP 18; TEMP 98.5; BMI 35.7
[2023-08-31 13:44] LABS: BASO % 0.6 % (0-2.0); EOS % 2.7 % (0-4.5); HEMATOCRIT 35.5 % (32.4-45.2); HEMOGLOBIN 11.9 GM/dL (10.7-15.3); LYMPH % 25.4 % (8-40); MCHC 33.5 g/dl (32.0-36.0); MEAN CELL VOLUME 83.5 fl (80-96); MEAN PLT VOLUME 8.5 fl (7.5-11.1); MONO % 5.4 % (3.8-10.2); NEUT % 65.9 % (42.8-82.8); PLATELET COUNT 299 10^3/uL (134-434); RBC 4.25 M/mm3 (3.60-5.2); RDW 14.4 % (11.6-15.6); WHITE BLOOD COUNT 7.6 K/mm3 (4.0-10.0)
[2023-08-31 13:54] LABS: EPI CELLS >36 /uL (0-25.1); HYALINE CASTS 2 /uL (0-3.1); URINE APPEARANCE CLEAR; URINE BACTERIA 64 /uL (0-1359); URINE BILIRUBIN NEGATIVE (NEGATIVE); URINE COLOR YELLOW; URINE GLUCOSE (UA) NEGATIVE (NEGATIVE); URINE KETONE TRACE (NEGATIVE); URINE LEUK ESTERASE 2+ (NEGATIVE); URINE NITRITE NEGATIVE (NEGATIVE); URINE PROTEIN TRACE (NEGATIVE); URINE RBC 17 /uL (0-23.9); URINE WBC 94 /uL (0-25.8)
[2023-08-31 14:10] LABS: POTASSIUM 5.8 mmol/L (3.5-5.1)
[2023-08-31 14:11] LABS: ALBUMIN 3.5 g/dl (3.4-5.0); BLOOD UREA NITROGEN 22.8 mg/dL (7-18); CALCIUM 9.5 mg/dL (8.5-10.1)
[2023-08-31 14:14] LABS: CREATININE 1.4 mg/dL (0.55-1.3)
[2023-08-31 14:17] LABS: BILIRUBIN,TOTAL 0.7 mg/dL (0.2-1); TOT PROT 7.7 g/dl (6.4-8.2)
== END 2023-08-31 18:32 | disposition home or self-care (01) ==
LOC: JER 11:54
DX: R11.2 Nausea with vomiting, unspecified (principal); R19.7 Diarrhea, unspecified; J11.1 Influenza due to unidentified influenza virus with other respiratory manifestations; R10.84 Generalized abdominal pain; R05.9 Cough, unspecified
CPT/HCPCS: 36415; 71045-TC-FY; 80053; 81003; 84132; 85025; 87086; 99284-25

== ENCOUNTER 2023-10-06 20:49 | Emergency (ER) | payer OTHER ==
[2023-10-06 21:52] VITALS: BMI 31.9
[2023-10-06 23:34] LABS: BASO % 0.5 % (0-2.0); EOS % 2.9 % (0-4.5); HEMATOCRIT 31.9 % (32.4-45.2); HEMOGLOBIN 10.7 GM/dL (10.7-15.3); LYMPH % 25.8 % (8-40); MCH 28.6 pg (25.7-33.7); MCHC 33.6 g/dl (32.0-36.0); MONO % 8.1 % (3.8-10.2); NEUT % 62.7 % (42.8-82.8); RBC 3.75 M/mm3 (3.60-5.2); RDW 15.5 % (11.6-15.6); WHITE BLOOD COUNT 9.5 K/mm3 (4.0-10.0)
[2023-10-06] MEDS: ACETAMINOPHEN 1000 MG/100 ML BAG IVPB ONE (23:48)
[2023-10-06] MEDS ORDERED: CEPHALEXIN MONOHYDRATE 500 MG CAPSULE (UD) ONE (23:49)
[2023-10-06] MEDS ORDERED: ACETAMINOPHEN 500 MG TABLET (FP) ONE (23:51)
[2023-10-06] MEDS: CEPHALEXIN MONOHYDRATE 500 MG CAPSULE (UD) PO ONE (23:55)
[2023-10-06] MEDS: ACETAMINOPHEN 500 MG TABLET (FP) PO ONE (23:55)
[2023-10-07 00:13] LABS: BLOOD UREA NITROGEN 25.6 mg/dL (7-18); CALCIUM 8.7 mg/dL (8.5-10.1); MAGNESIUM 1.9 mg/dL (1.8-2.4)
[2023-10-07 00:17] LABS: CREATININE 1.3 mg/dL (0.55-1.3)
[2023-10-07 00:19] LABS: BILIRUBIN,TOTAL 0.4 mg/dL (0.2-1); TOT PROT 6.2 g/dl (6.4-8.2)
[2023-10-07 01:41] LABS: POTASSIUM 4.3 mmol/L (3.5-5.1)
[2023-10-07 02:07] VITALS: BP 105/50; PULSE 79; RESP 20; TEMP 97.2
[2023-10-07 02:58] LABS: PLATELET ESTIMATE 284.6
[2023-10-07 02:59] LABS: MEAN PLT VOLUME 8.4 fl (7.5-11.1); PLATELET COUNT 284.6 10^3/uL (134-434)
== END 2023-10-07 05:58 | disposition home or self-care (01) ==
LOC: JER 20:49
DX: R60.0 Localized edema (principal); R06.02 Shortness of breath
CPT/HCPCS: 36415; 71045-TC-FY; 80053; 83735; 83880; 84484; 85025; 93005; 93010; 93970-TC; 99285-25

== ENCOUNTER 2024-01-06 14:57 | Emergency (ER) | payer OTHER ==
[2024-01-06 16:05] VITALS: BMI 34.4
[2024-01-06 16:31] VITALS: TEMP 99.3
[2024-01-06 16:34] VITALS: BP 96/58; PULSE 81; RESP 19
== END 2024-01-06 18:15 | disposition home or self-care (01) ==
LOC: JER 14:57
DX: F41.9 Anxiety disorder, unspecified (principal); R11.0 Nausea; R42 Dizziness and giddiness
CPT/HCPCS: 93005; 93010; 99283-25

== ENCOUNTER 2024-05-11 22:58 | Observation (INO) | payer OTHER ==
[2024-05-11 23:32] LABS: BASO % 0.2 % (0-2.0); HEMATOCRIT 39.2 % (32.4-45.2); HEMOGLOBIN 12.9 GM/dL (10.7-15.3); LYMPH % 22.8 % (8-40); MCH 28.7 pg (25.7-33.7); MCHC 32.8 g/dl (32.0-36.0); MEAN CELL VOLUME 87.3 fl (80-96); MEAN PLT VOLUME 7.9 fl (7.5-11.1); MONO % 5.5 % (3.8-10.2); NEUT % 68.5 % (42.8-82.8); PLATELET COUNT 319 10^3/uL (134-434); RBC 4.49 M/mm3 (3.60-5.2); RDW 14.4 % (11.6-15.6); WHITE BLOOD COUNT 10.6 K/mm3 (4.0-10.0)
[2024-05-11] MEDS: LACTATED RINGERS SOLUTION 1000 ML INFUS.BAG IV ONE (23:35)
[2024-05-11 23:40] LABS: INR 0.96 (0.83-1.09); PROTHROMBIN TIME (PATIENT) 11.1 SEC (9.7-13.0)
[2024-05-11 23:43] LABS: ACTIVATED PTT 26.6 SECONDS (25.2-36.5)
[2024-05-11] MEDS: ACETAMINOPHEN 1000 MG/100 ML BAG IVPB ONE (23:49)
[2024-05-12 00:05] LABS: POTASSIUM 4.4 mmol/L (3.5-5.1)
[2024-05-12 00:07] LABS: CALCIUM 9.4 mg/dL (8.5-10.1)
[2024-05-12 00:08] LABS: ALBUMIN 3.7 g/dl (3.4-5.0); BLOOD UREA NITROGEN 19.2 mg/dL (7-18)
[2024-05-12 00:11] LABS: CREATININE 1.4 mg/dL (0.55-1.3)
[2024-05-12 00:12] LABS: BILIRUBIN,TOTAL 0.6 mg/dL (0.2-1); TOT PROT 6.9 g/dl (6.4-8.2)
[2024-05-12 00:15] LABS: MAGNESIUM 1.8 mg/dL (1.8-2.4)
[2024-05-12 00:19] LABS: PHOSPHOROUS 4.3 mg/dL (2.5-4.9)
[2024-05-12 00:43] LABS: POTASSIUM 4.2 mmol/L (3.5-5.1)
[2024-05-12 00:44] LABS: BLOOD UREA NITROGEN 19.9 mg/dL (7-18); CALCIUM 9.6 mg/dL (8.5-10.1)
[2024-05-12 00:48] LABS: CREATININE 1.4 mg/dL (0.55-1.3)
[2024-05-12] MEDS ORDERED: POTASSIUM CHLORIDE TABS 20 MEQ TABLET.ER (FP) PO ONE (01:17)
[2024-05-12] MEDS ORDERED: POTASSIUM CHLORIDE ORAL LIQUID 20 MEQ/15 ML ONE (01:19)
[2024-05-12] MEDS: POTASSIUM CHLORIDE ORAL LIQUID 20 MEQ/15 ML PO ONE (01:20)
[2024-05-12 02:29] LABS: POTASSIUM 4.6 mmol/L (3.5-5.1)
[2024-05-12 02:31] LABS: BLOOD UREA NITROGEN 20.1 mg/dL (7-18); CALCIUM 9.5 mg/dL (8.5-10.1)
[2024-05-12 02:35] LABS: CREATININE 1.4 mg/dL (0.55-1.3)
[2024-05-12] MEDS ORDERED: DOCUSATE SODIUM 100 MG CAPSULE (FP) PO PRN (03:15)
[2024-05-12 03:57] LABS: MAGNESIUM 1.7 mg/dL (1.8-2.4)
[2024-05-12] MEDS: MAGNESIUM SULFATE IN WATER 2 GM/50 ML IVPB IVPB ONE (06:23)
[2024-05-12] MEDS: ACETAMINOPHEN 325 MG TABLET (FP) PO PRN (06:24)
[2024-05-12 06:33] VITALS: BMI 36.1
[2024-05-12] MEDS ORDERED: traMADol HCL 50 MG TABLET PO PRN (06:51)
[2024-05-12] MEDS ORDERED: ACETAMINOPHEN 500 MG TABLET (FP) PO PRN (07:15)
[2024-05-12] MEDS: LIDOCAINE 4% PATCH TP SCH (09:03)
[2024-05-12] MEDS: buPROPion HCL 75 MG TABLET PO SCH (09:04)
[2024-05-12] MEDS: FLUoxetine HCL 20 MG CAPSULE PO SCH (09:04)
[2024-05-12] MEDS: traMADol HCL 50 MG TABLET PO PRN (12:02)
[2024-05-12 18:17] LABS: EPI CELLS 15 /uL (0-25.1); HYALINE CASTS 0 /uL (0-3.1); PH,URINE 6.5 (5.0-8.0); URINE APPEARANCE CLEAR; URINE BACTERIA 231 /uL (0-1359); URINE BILIRUBIN NEGATIVE (NEGATIVE); URINE COLOR YELLOW; URINE GLUCOSE (UA) NEGATIVE (NEGATIVE); URINE KETONE NEGATIVE (NEGATIVE); URINE LEUK ESTERASE TRACE (NEGATIVE); URINE NITRITE NEGATIVE (NEGATIVE); URINE PROTEIN NEGATIVE (NEGATIVE); URINE RBC 8 /uL (0-23.9); URINE UROBILINOGEN 0.2 mg/dL (0.2-1.0); URINE WBC 19 /uL (0-25.8)
[2024-05-12] MEDS: PRAZOSIN HCL 1 MG CAPSULE PO SCH (21:30)
[2024-05-12] MEDS: LIDOCAINE PATCH REMOVAL MC SCH (21:30)
[2024-05-13 06:58] LABS: BASO % 0.3 % (0-2.0); EOS % 3.8 % (0-4.5); HEMATOCRIT 36.7 % (32.4-45.2); HEMOGLOBIN 12.3 GM/dL (10.7-15.3); LYMPH % 19.8 % (8-40); MCH 29.2 pg (25.7-33.7); MCHC 33.6 g/dl (32.0-36.0); MEAN CELL VOLUME 87.1 fl (80-96); MEAN PLT VOLUME 8.1 fl (7.5-11.1); MONO % 6.5 % (3.8-10.2); NEUT % 69.6 % (42.8-82.8); PLATELET COUNT 277 10^3/uL (134-434); RBC 4.21 M/mm3 (3.60-5.2); RDW 14.3 % (11.6-15.6); WHITE BLOOD COUNT 7.9 K/mm3 (4.0-10.0)
[2024-05-13 12:47] VITALS: RESP 19
[2024-05-13 15:07] VITALS: BP 115/84; PULSE 91; TEMP 98.1
== END 2024-05-13 15:52 | disposition home health service (06) ==
LOC: JER 22:58 → JERBED 05-12 01:31 → J4W 05-12 06:11
PROVIDERS: ADMIT Internal Medicine; ATTEND Family Medicine
PROC: 3E033NZ Introduction of Analgesics, Hypnotics, Sedatives into Peripheral Vein, Percutaneous Approach (ICD-10-PCS; principal; 2024-05-12)
PROC: 3E033GC Introduction of Other Therapeutic Substance into Peripheral Vein, Percutaneous Approach (ICD-10-PCS; 2024-05-12)
PROC: 3E0337Z Introduction of Electrolytic and Water Balance Substance into Peripheral Vein, Percutaneous Approach (ICD-10-PCS; 2024-05-12)
DX: N17.9 Acute kidney failure, unspecified (principal); I12.9 Hypertensive chronic kidney disease with stage 1 through stage 4 chronic kidney disease, or unspecified chronic kidney disease; F20.9 Schizophrenia, unspecified; F31.9 Bipolar disorder, unspecified; W18.39XA Other fall on same level, initial encounter; Y93.89 Activity, other specified; Y92.008 Other place in unspecified non-institutional (private) residence as the place of occurrence of the external cause; E03.9 Hypothyroidism, unspecified; R42 Dizziness and giddiness; R26.2 Difficulty in walking, not elsewhere classified; R55 Syncope and collapse; I11.0 Hypertensive heart disease with heart failure; R00.0 Tachycardia, unspecified; E78.5 Hyperlipidemia, unspecified; R60.0 Localized edema; N18.9 Chronic kidney disease, unspecified; N20.0 Calculus of kidney; E66.9 Obesity, unspecified; Z90.79 Acquired absence of other genital organ(s); Z95.5 Presence of coronary angioplasty implant and graft
CPT/HCPCS: 0241U-QW; 36415; 70450-TC; 71046-TC-FY; 73521-TC-FY; 80048; 80053; 81003; 83605; 83735; 84100; 84484; 85025; 85610; 85730; 87045; 87046; 87086; 87205; 93005; 93010; 93306-TC; 96365; 96375; 97116-GP; 97162-GP; 99285-25; G0378; J0131

== ENCOUNTER 2024-06-18 19:16 | Emergency (ER) | payer MEDICARE, OTHER ==
[2024-06-18 19:37] VITALS: BP 105/64; PULSE 92; RESP 20; TEMP 98.4; BMI 34.9
[2024-06-18] MEDS ORDERED: IBUPROFEN 400 MG TABLET (FP) PO ONE (20:58)
[2024-06-18] MEDS ORDERED: ACETAMINOPHEN 500 MG TABLET (FP) ONE (20:58)
[2024-06-18] MEDS: ACETAMINOPHEN 500 MG TABLET (FP) PO ONE (21:01)
[2024-06-18] MEDS: IBUPROFEN 400 MG TABLET (FP) PO ONE (21:01)
== END 2024-06-19 02:13 | disposition home or self-care (01) ==
LOC: JERFT 19:16
DX: M25.511 Pain in right shoulder (principal); R51.9 Headache, unspecified
CPT/HCPCS: 99283-25